=== PATIENT | male | born 1930 | race Caucasian/White ===

== ENCOUNTER → 2019-10-09 | Outpatient (CLI) | payer MEDICARE, BC, OTHER ==
[~2019-10-09] VITALS: Ht 177.8 cm; Wt 77.6 kg
[~2019-10-09] MED LIST: ASA81BEC PO; BACTRIM DS TAB1 EACH PO; DICLOFENAC SODI75 MG PO; MYRBETRIQ50 MG PO; NORVASC 2.5 MG2.5 M1 PO; TOPROL XL25 MG PO
--- NOTE | ~2019-10-09 | OP ---
[address] [address] OPERATIVE REPORT Name: ERNESTO ALCARAZ Room: [facility]#: [id number] Admission: 10/09/19 Attend Phys: Jamal Alfaro MD Discharge: Date of : [birth year] Report #: [id number] THIS REPORT FOR: //name// cc: Nita Ko MD, Karmel MD ~ THIS REPORT FOR: //name// CC: Nita Alfaro DATE OF SERVICE: 10/09/2019 PREOPERATIVE DIAGNOSIS: Left popliteal artery aneurysm. POSTOPERATIVE DIAGNOSIS: Left popliteal artery aneurysm. PROCEDURES: 1. Left leg angiogram. 2. Left popliteal artery aneurysm repair using an 8 mm x 25 cm Aulander Viabahn endograft. 3. Physician supervision of sedation for an angiogram of left lower extremity. Sedation was needed due to the uncomfortable nature of the procedure. SURGEON: Jamal Alfaro MD SALES ADMINISTRATION SPECIALIST: Hernan Monroy FINDINGS ON ANGIOGRAM: 1. There is sluggish flow throughout the left lower extremity consistent with congestive heart failure. 2. 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 3. The patient has 3-vessel runoff to the left foot. 4. No significant stenosis throughout the left femoral and popliteal and tibial systems. 5. After repair, there is no further evidence of aneurysm of the popliteal artery level. COMPLICATIONS: None. ESTIMATED BLOOD LOSS: 10 mL. SPECIMEN: None. ANESTHESIA: Local sedation. INDICATIONS: Informed consent was obtained from the patient with risks [facility] [address] [place] [address] OPERATIVE REPORT Name: KIERANERNESTO Q Room: [facility]#: [id number] Admission: 10/09/19 Attend Phys: Jamal Alfaro MD Discharge: Date of : [birth year] Report #: [id number] including but not limited to bleeding, infection, need for further surgery, pain, , heart attack, stroke and amputation. The patient understood these risks and was agreeable to proceed. DESCRIPTION OF PROCEDURE: The patient was taken to the angio suite, placed in supine position. Sedation was initiated. Right groin was prepped and draped in usual sterile fashion. Timeout was performed. I infused 10 mL of 1% lidocaine into the right groin. I cannulated the right common femoral artery without difficulty. I used Seldinger technique to exchange out for a 6-Swazi sheath. I passed an Omniflush catheter into the abdominal aorta, selectively cannulated the left iliac system. I passed up and over 7-Swazi sheath. I parked the tip of the sheath in the left SFA, selectively cannulated these vessels. I was able to cross the popliteal aneurysm. I performed selective angiogram of the popliteal artery as well as tibial vessels. I measured the correct length. I then prepped and placed an 8 mm x 25 cm Aulander Viabahn stent graft. I crossed the aneurysmal segment. The graft deployed in excellent position. I post-dilated with a 7 mm balloon. Completion imaging showed excellent result. I removed my sheath and wire. I placed a 6-Swazi Angio-Seal without complication. There was no bleeding or hematoma. We held pressure for 5 minutes. The patient was systemically heparinized throughout the critical portion of procedure. The patient tolerated the procedure well and was taken alert and awake to recovery room in good condition. All needle and instrument counts were correct. By: [id number] Alfaro MD /nt
[2019-10-09 11:09] LABS: HEMATOCRIT 39.9 % (42.0-52.0); HEMOGLOBIN 13.8 gm/dL (14.0-18.0); MCH 31.8 pg (26.0-34.0); MCHC 34.5 g/dL (28.0-37.0); MPV 9.3 fl. (7.2-11.1); RBC 4.33 mil/uL (4.50-6.00); RDW-CV 14.4 % (10.5-14.5)
[2019-10-09 11:14] VITALS: BP 132/65
[2019-10-09 11:16] LABS: CREATININE 0.9 mg/dL (0.6-1.3); POTASSIUM 4.2 mmol/L (3.5-5.1)
[2019-10-09 11:19] LABS: APTT 26.1 Seconds (25.0-31.3); PROTIME 10.1 Seconds (9.20-11.50)
[2019-10-09 13:08] VITALS: BP 138/78
[2019-10-09 13:15] VITALS: BP 138/73
[2019-10-09 13:40] VITALS: BP 138/73
[2019-10-09 13:45] VITALS: BP 138/73
[2019-10-09 14:00] VITALS: BP 131/69
== END | disposition home or self-care (01) ==
LOC: M.INT 09:52
PROVIDERS: Surgery Vascular Surgery
DX: I72.4 Aneurysm of artery of lower extremity (principal); I10 Essential (primary) hypertension; K21.9 Gastro-esophageal reflux disease without esophagitis; Z98.890 Other specified postprocedural states; Z96.649 Presence of unspecified artificial hip joint; Z79.899 Other long term (current) drug therapy; Z79.82 Long term (current) use of aspirin